=== PATIENT | female | born 1950 | race Caucasian/White ===

== ENCOUNTER 2016-05-23 23:11 | Emergency (ER) | payer OTHER ==
[2016-05-23 23:20] VITALS: TEMP 97.3
--- NOTE | 2016-05-23 23:44 | EDPHY ---
H & P Stated Complaint: R abd/back pain x3d HPI/ROS: HPI CHIEF COMPLAINT: Right-sided CVA pain, back pain, abdominal pain, worse with movement HISTORY OF PRESENT ILLNESS: This patient very pleasant 58-year-old female she does have significant past medical history for Parkinson's disease, thyroid disease, and multitude of surgeries, she presents to the emergency room with right-sided CVA pain right-sided musculoskeletal pain that radiates sharp burning sensation into her abdomen. Right-sided. She denies change in bowel habits, denies vomiting, denies diarrhea, denies urinary symptoms. Patient tells me that the pain is excruciating 10/10 worse when she moves. She does tell me she has chronic low back pain. Has bulging discs. She denies any trauma. She tells me the pain is worse with axial truncal movements as well as with lifting her left leg off the bed. No recent injury or fall. Does not hurt when she breathes in denies shortness of breath or chest pain. Patient tells me this been going on for 3 days. Denies fever. Denies saddle anesthesia or bowel or bladder incontinence. Past Medical History: Parkinson's disease, thyroid disease Past Surgical History: Colectomy from diverticulitis with abscess, right knee replacement, sinus surgery Social History: Denies daily use of drugs alcohol tobacco products Family History: Noncontributory ROS REVIEW OF SYSTEMS: A comprehensive 10 point review of systems is otherwise negative aside from elements mentioned in the history of present illness. Exam Constitutional triage nursing summary reviewed, vital signs reviewed, awake/ alert. Eyes normal conjunctivae and sclera, EOMI, PERRLA. HENT normal inspection, atraumatic, moist mucus membranes, no epistaxis, neck supple/ no meningismus, no raccoon eyes. Respiratory clear to auscultation bilaterally, normal breath sounds, no respiratory distress, no wheezing. Cardiovascular rate normal, regular rhythm, no murmur, no edema, distal pulses normal. Gastrointestinal soft, non-tender, no rebound, no guarding, normal bowel sounds, no distension, no pulsatile mass. Genitourinary no CVA tenderness. Musculoskeletal back exam: no midline lumbar pain, no step-offs, no crepitus, mild tenderness palpation over the posterior SI joint. no midline vertebral tenderness, full range of motion, no calf swelling, no tenderness of extremities , no meningismus, good pulses, neurovascularly intact. Skin pink, warm, & dry, no rash, skin atraumatic. Neurologic awake, alert and oriented x 3, AAOx3, moves all 4 extremities equally, motor intact, sensory intact, CN II-XII intact, normal cerebellar, normal vision, normal speech. Psychiatric normal mood/affect. Heme/Lymph/Immune no lymphadenopathy. Differential Diagnosis: Includes but is not limited to in a particular order, musculoskeletal back pain, nerve root compression, degenerative joint disease, annular tear, disc herniation, compression fracture, UTI, kidney stone, pyelonephritis, renal mass Medical Decision Making: This patient will have an IV established receive a fluid bolus she received 100 mcg of IV fentanyl for acute pain control, check blood work and urinalysis patient will need a CT scan abdomen pelvis with IV contrast rule out acute intra-abdominal pathology. Her pain is worse with left leg raise as well as truncal axial movements is most likely musculoskeletal nature. Re-evaluation: CT scan of the abdomen pelvis without IV contrast . The results of the study are shows no acute inflammatory process specifically no kidney stone hydroureter or pyelonephritis, unremarkable CT scan without contrast no evidence of compression fracture The study was read by Dr. Edwards I viewed the images myself on the PACS system. 1255: re-examination at this time patient is resting comfortably IV fentanyl did help the patient. CT scan is reassuring blood work has been reviewed urinalysis does indicate a nitro UTI. I have sent this for urine culture and given her IV Rocephin here in the emergency room. 0117: re-examination at this time she is feeling much better after IV fentanyl 100 mcg. She does have a nitrite positive UTI urine cultures been sent IV Rocephin has been given. The UTI is unlikely to cause this severe musculoskeletal back pain severe with movement. Specifically truncal axial movements and leg raise. No evidence of cauda equina syndrome CT scan shows no evidence of compression fracture. Patient is comfortable going home with antibiotics for her UTI as well some pain medicine for her back pain I feel that this sharp stabbing pain that radiates from her right CVA region and posterior SI joint into her abdomen however not down her leg is most likely nerve root compression. No evidence of cauda equina syndrome no evidence of sciatica. Recommend close follow-up with her primary care doctor or return emergency room if there is any worsening symptoms questions concerns includes high fever, vomiting severe pain or any questions or concerns she understands. 0208: Re-examination at this time this patient is resting comfortably. She is requesting be discharged home. Prescription given for Bhavani Delatorre. Understands strict return precautions. Source: Patient - Personal History Current Tetanus/Diphtheria Vaccine: Yes Current Tetanus Diphtheria and Acellular Pertussis (TDAP): Yes - Medical/Surgical History Hx Asthma: Yes Hx Chronic Respiratory Disease: No Hx Diabetes: No Hx Cardiac Disease: No Hx Renal Disease: No Hx Cirrhosis: No Hx Alcoholism: No Hx HIV/AIDS: No Hx Splenectomy or Spleen Trauma: No Other PMH: Asthma, Rectocele, chronic back & neck pain, hx colectomy, hx pneumothorax - Social History Smoking Status: Never smoked Constitutional: Initial Vital Signs Temperature (C) 36.3 C 05/23/16 23:15 Heart Rate 99 05/23/16 23:15 Respiratory Rate 16 05/23/16 23:15 Blood Pressure 139/78 H 05/23/16 23:15 O2 Sat (%) 98 05/23/16 23:15 O2 Delivery Mode Room Air Allergies/Adverse Reactions: codeine Allergy (Mild, Verified 09/23/13 12:19) Other-Enter Comments clindamycin Allergy (Verified 05/23/16 23:26) cyclobenzaprine Allergy (Verified 05/23/16 23:26) hydromorphone HCl [From Dilaudid] Allergy (Verified 10/07/13 19:23) iodine [Iodine] Allergy (Verified 04/25/09 22:11) meperidine HCl [From Demerol] Allergy (Verified 04/25/09 22:11) propoxyphene HCl [From Darvon] Allergy (Verified 04/25/09 22:11) ropinirole Allergy (Verified 05/23/16 23:26) Home Medications: Medication Instructions Recorded Albuterol [Proventil Inhaler HFA 1 - 2 puffs IH DAILY PRN 04/25/09 (*)] Levothyroxine [Synthroid 75 mcg 75 mcg PO HS 04/25/09 (*)] Acetaminophen [Tylenol ES 500 mg 500 mg PO DAILY PRN 09/18/13 (*)] Chlorpheniramine Maleate 4 mg PO DAILY PRN 09/18/13 Cholecalciferol (Vitamin D3) 2,000 unit PO DAILY@1700 09/18/13 [Vitamin D3] Docusate Sodium [Colace 100 MG (*)] 100 mg PO BID 09/18/13 Fluticasone Hfa 110 Mcg [Flovent 2 puffs IH BID PRN 09/18/13 110 MCG Hfa MDI (*)] Herbals/Supplements -Info Only 1 ea PO AD 09/18/13 Multivitamins [Multivitamin (*)] 1 each PO DAILY 09/18/13 Rizatriptan Benzoate [Rizatriptan] 10 mg PO PRN PRN 09/18/13 diphenhydrAMINE [Benadryl 25 MG 25 mg PO HS PRN 09/18/13 (*)] Ascorbic Acid [C-1000] 1,000 mg PO BID 09/19/13 Polyethylene Glycol 3350 [Miralax 1 tsp PO BID 09/19/13 17 gm (*)] Hydrocodone/APAP 5/325 [Homestead 1 - 2 tab PO Q4 PRN #30 tab 10/08/13 5/325 (*)] Carboxymethyl/Glycerin/Poly80 1 drop OP QID 03/23/14 [Refresh Optive Advanced Drops] Ondansetron Odt [Zofran Odt 4 mg 4 mg PO Q6 PRN 03/23/14 (*)] Aspirin EC [Aspirin EC 325 mg (*)] 325 mg PO DAILY #0 tab 04/09/14 Docusate Sodium [Colace 100 MG (*)] 100 mg PO BID #30 cap 04/09/14 HYDROcodone/APAP 10/325 [[place] 1 - 2 tab PO Q6 PRN #120 tab 04/09/14 10/325 (*)] Ondansetron Odt [Zofran Odt 4 mg 4 mg PO Q4 PRN #30 tab 04/09/14 (*)] celeCOXIB [Celebrex (*)] 200 mg PO DAILY #20 cap 04/09/14 oxyCODONE IR [Oxycodone Ir (*)] 5 mg PO Q6 PRN #30 tab 04/09/14 Cephalexin [Keflex] 500 mg PO Q6H #28 cap 05/24/16 Hydrocodone/APAP 5/325 [[place] 1 - 2 tab PO Q4H PRN #20 tab 05/24/16 5/325] Medical Decision Making - Data Points Laboratory Results: Laboratory Results 05/23/16 23:43 05/23/16 23:43 05/24/16 05/24/16 05/23/16 00:18 00:10 23:43 WBC RBC Hgb Hct MCV MCH MCHC RDW Plt Count MPV Neut % (Auto) Lymph % (Auto) Cooke % (Auto) Eos % (Auto) Baso % (Auto) Nucleat RBC Rel Count Absolute Neuts (auto) Absolute Lymphs (auto) Absolute Monos (auto) Absolute Eos (auto) Absolute Basos (auto) Absolute Nucleated RBC Immature Gran % Immature Gran # PT INR APTT VBG Lactic Acid 1.2 mmol/L mmol/L (0.7-2.1) Sodium 144 mEq/L mEq/L (134-144) Potassium 4.2 mEq/L mEq/L (3.5-5.2) Chloride 107 mEq/L mEq/L (97-110) Carbon Dioxide 25 mEq/l mEq/l (22-31) Anion Gap 12 mEq/L mEq/L (8-16) BUN 17 mg/dL mg/dL (7-23) Creatinine 0.7 mg/dL mg/dL (0.6-1.0) Estimated GFR > 60 Glucose 107 mg/dL H mg/dL (70-100) Calcium 10.1 mg/dL mg/dL (8.5-10.4) Total Bilirubin 0.6 mg/dL mg/dL (0.1-1.4) Conjugated Bilirubin 0.4 mg/dL mg/dL (0.0-0.5) Unconjugated Bilirubin 0.2 mg/dL mg/dL (0.0-1.1) AST 25 IU/L IU/L (14-46) ALT 15 IU/L IU/L (9-52) Alkaline Phosphatase 92 IU/L IU/L (38-126) Total Protein 7.9 g/dL g/dL (6.3-8.2) Albumin 4.8 g/dL g/dL (3.5-5.0) Lipase 89.0 IU/L IU/L (23-300) Urine Color YELLOW Urine Appearance MODERATELY TURBID Urine pH 5.0 (5.0-7.5) Ur Specific [place] 1.015 (1.002-1.030) Urine Protein NEGATIVE (NEGATIVE) Urine Ketones TRACE H (NEGATIVE) Urine Blood NEGATIVE (NEGATIVE) Urine Nitrate POSITIVE H (NEGATIVE) Urine Bilirubin NEGATIVE (NEGATIVE) Urine Urobilinogen NEGATIVE EU EU (0.2-1.0) Ur Leukocyte Esterase TRACE H (NEGATIVE) Urine RBC Not Reported Urine WBC 5-10 /hpf H /hpf (0-3) Ur Epithelial Cells 1+ /lpf /lpf (NONE-1+) Urine Bacteria TRACE /hpf H /hpf (NONE SEEN) Urine Mucus TRACE /lpf /lpf (NONE-1+) Ur Culture Indicated? INDICATED H (NI) Urine Glucose NEGATIVE (NEGATIVE) 05/23/16 05/23/16 23:43 23:43 WBC 6.54 10^3/uL 10^3/uL (3.80-9.50) RBC 4.26 10^6/uL 10^6/uL (4.18-5.33) Hgb 14.6 g/dL g/dL (12.6-16.3) Hct 41.2 % % (38.0-47.0) MCV 96.7 fL fL (81.5-99.8) MCH 34.3 pg H pg (27.9-34.1) MCHC 35.4 g/dL g/dL (32.4-36.7) RDW 12.8 % % (11.5-15.2) Plt Count 222 10^3/uL 10^3/uL (150-400) MPV 9.1 fL fL (8.7-11.7) Neut % (Auto) 66.8 % % (39.3-74.2) Lymph % (Auto) 24.5 % % (15.0-45.0) Cooke % (Auto) 6.6 % % (4.5-13.0) Eos % (Auto) 1.2 % % (0.6-7.6) Baso % (Auto) 0.6 % % (0.3-1.7) Nucleat RBC Rel Count 0.0 % % (0.0-0.2) Absolute Neuts (auto) 4.37 10^3/uL 10^3/uL (1.70-6.50) Absolute Lymphs (auto) 1.60 10^3/uL 10^3/uL (1.00-3.00) Absolute Monos (auto) 0.43 10^3/uL 10^3/uL (0.30-0.80) Absolute Eos (auto) 0.08 10^3/uL 10^3/uL (0.03-0.40) Absolute Basos (auto) 0.04 10^3/uL 10^3/uL (0.02-0.10) Absolute Nucleated RBC 0.00 10^3/uL 10^3/uL (0-0.01) Immature Gran % 0.3 % % (0.0-1.1) Immature Gran # 0.02 10^3/uL 10^3/uL (0.00-0.10) PT 13.5 SEC SEC (12.0-15.0) INR 1.04 (0.83-1.16) APTT 26.5 SEC SEC (23.0-38.0) VBG Lactic Acid Sodium Potassium Chloride Carbon Dioxide Anion Gap BUN Creatinine Estimated GFR Glucose Calcium Total Bilirubin Conjugated Bilirubin Unconjugated Bilirubin AST ALT Alkaline Phosphatase Total Protein Albumin Lipase Urine Color Urine Appearance Urine pH Ur Specific [place] Urine Protein Urine Ketones Urine Blood Urine Nitrate Urine Bilirubin Urine Urobilinogen Ur Leukocyte Esterase Urine RBC Urine WBC Ur Epithelial Cells Urine Bacteria Urine Mucus Ur Culture Indicated? Urine Glucose Medications Given: Discontinued Medications Hydrocodone Bitart/Acetaminophen (Homestead 5/325mg Prepack#6) 1 btl TAKEHOME EDNOW ONE Stop: 05/24/16 01:21 Last Admin: 05/24/16 01:39 Dose: 1 btl Cephalexin (Keflex 500 Mg Prepack#4) 1 btl TAKEHOME EDNOW ONE PRN Reason: Protocol Stop: 05/24/16 01:21 Last Admin: 05/24/16 01:40 Dose: 1 btl Fentanyl (Sublimaze) 100 mcg IVP EDNOW ONE Stop: 05/24/16 00:12 Last Admin: 05/24/16 00:19 Dose: 100 mcg Fentanyl (Sublimaze) 50 mcg IVP EDNOW ONE Stop: 05/24/16 01:17 Last Admin: 05/24/16 01:24 Dose: 50 mcg Sodium Chloride (Ns) 1,000 mls @ 0 mls/hr IV ONCE ONE PRN Reason: Wide Open Stop: 05/23/16 23:48 Last Admin: 05/24/16 00:11 Dose: 1,000 mls Ceftriaxone Sodium/Dextrose (Rocephin 1 Gm (Premix)) 50 mls @ 100 mls/hr IV EDNOW ONE PRN Reason: Protocol Stop: 05/24/16 01:19 Last Admin: 05/24/16 01:13 Dose: 50 mls Departure - Departure Disposition: Home, Routine, Self-Care Clinical Impression: UTI (urinary tract infection) Qualifiers: Urinary tract infection type: acute cystitis Hematuria presence: with hematuria Qualified Code(s): N30.01 - Acute cystitis with hematuria Back pain Qualifiers: Back pain location: low back pain Chronicity: acute Back pain laterality: right Sciatica presence: without sciatica Qualified Code(s): M54.5 - Low back pain Condition: Good Instructions: Urinary Tract Infection in Women (ED), Low Back Strain (ED), Acute Low Back Pain (ED), Lumbar Radiculopathy (ED), Flank Pain (ED) Additional Instructions: 1. Stay well-hydrated drink lots of fluids 2. return emergency room if you have worsening symptoms high fever vomiting severe back pain or you do not feel well. 3. Take antibiotic as prescribed. 4. I have given her a prescription for Homestead this is a narcotic do not drive or drink alcohol while taking this can make her sleepy. It is for times of severe pain Referrals: Shey Alcantara MD [Primary Care Provider] - As per Instructions Prescriptions: Cephalexin [Keflex] 500 mg PO Q6H #28 cap Hydrocodone/APAP 5/325 [Homestead 5/325] 1 - 2 tab PO Q4H PRN #20 tab PRN Reason: Pain, Moderate
[2016-05-23] MEDS ORDERED: NS 1,000 ML IV ONE (23:47)
[2016-05-23 23:56] LABS: % IMMATURE GRANULYOCYTES 0.3 % (0.0-1.1); ABSOLUTE IMMATURE GRANULOCYTES 0.02 10^3/uL (0.00-0.10); ADD DIFF? NO; ADD MORPH? NO; ADD SCAN? NO; ATYPICAL LYMPHOCYTE FLAG 0 (0-99); FRAGMENT RBC FLAG 0 (0-99); HEMATOCRIT 41.2 % (38.0-47.0); HEMOGLOBIN 14.6 g/dL (12.6-16.3); LEFT SHIFT FLG 0 (0-99); LIPEMIA HEMOLYSIS FLAG 90 (0-99); MEAN CELL HEMOGLOBIN 34.3 pg (27.9-34.1); MEAN CELL HEMOGLOBIN CONCENTR. 35.4 g/dL (32.4-36.7); MEAN CELL VOLUME 96.7 fL (81.5-99.8); MEAN PLATELET VOLUME 9.1 fL (8.7-11.7); PLATELET CLUMPS FLAG 0 (0-99); PLATELET COUNT 222 10^3/uL (150-400); RED BLOOD CELL COUNT 4.26 10^6/uL (4.18-5.33); RED CELL DISTRIBUTION WIDTH 12.8 % (11.5-15.2)
[2016-05-24 00:05] LABS: INR 1.04 (0.83-1.16); PROTIME(PATIENT) 13.5 SEC (12.0-15.0)
[2016-05-24 00:06] LABS: APTT 26.5 SEC (23.0-38.0)
[2016-05-24 00:11] LABS: ALANINE AMINOTRANSFERASE 15 IU/L (9-52); ALBUMIN 4.8 g/dL (3.5-5.0); ALKALINE PHOSPHATASE 92 IU/L (38-126); ANION GAP 12 mEq/L (8-16); ASPARTATE AMINOTRANSFERASE 25 IU/L (14-46); BILIRUBIN,TOTAL 0.6 mg/dL (0.1-1.4); BILIRUBIN-CONJUGATED 0.4 mg/dL (0.0-0.5); BILIRUBIN-UNCONJUGATED 0.2 mg/dL (0.0-1.1); CALCIUM 10.1 mg/dL (8.5-10.4); CARBON DIOXIDE 25 mEq/l (22-31); CHLORIDE 107 mEq/L (97-110); CREATININE 0.7 mg/dL (0.6-1.0); GLOMERULAR FILTRATION RATE > 60; GLUCOSE 107 mg/dL (70-100); POTASSIUM 4.2 mEq/L (3.5-5.2); SODIUM 144 mEq/L (134-144); TOTAL PROTEIN 7.9 g/dL (6.3-8.2)
[2016-05-24] MEDS ORDERED: fentaNYL 100 MCG/2 ML INJ IVP ONE ×2 (00:11→01:16)
[2016-05-24 00:19] LABS: COLOR YELLOW; LEUKOCYTE ESTERASE,URINE TRACE (NEGATIVE); NITRITE,URINE POSITIVE (NEGATIVE)
[2016-05-24 00:29] LABS: BACTERIA TRACE /hpf (NONE SEEN); MUCUS TRACE /lpf (NONE-1+)
[2016-05-24] MEDS ORDERED: CEPHALEXIN 500MG PREPACK#4 BTL TAKEHOME ONE (01:20)
[2016-05-24] MEDS ORDERED: HYDROCOD/APAP 5/325 PREPACK#6 BTL TAKEHOME ONE (01:20)
[2016-05-24 02:36] VITALS: BP 131/72; PULSE 75; RESP 20; O2SAT 96
== END 2016-05-24 02:43 | disposition home or self-care (01) ==
DX: N30.01 Acute cystitis with hematuria (principal); B96.89 Other specified bacterial agents as the cause of diseases classified elsewhere; J45.909 Unspecified asthma, uncomplicated; Z79.82 Long term (current) use of aspirin
CPT/HCPCS: 74176; J0696; J3010; 96365

== ENCOUNTER 2017-02-15 07:51 | Inpatient (IN) | payer OTHER ==
[~2017-02-15 07:51] MED LIST: ROPIVACAINE 0.2% 80 MG, EPINEPHrine 0.2 MG, KETOROLAC TROMETHAMINE 30 MG in BAG 0 ML IU ONE; TRANEXAMIC ACID 3,000 MG in NS 50 ML IRR ONE; TRANEXAMIC ACID 3,000 MG/50 ML BAG IRR ONE; VANCOMYCIN 1 GM VIAL ONE
[2017-02-15] MEDS ORDERED: ceFAZolin 2 GM/SWFI 2 GM/20 ML SYR IVP ONE (08:14)
[2017-02-15] MEDS ORDERED: DEXAMETHASONE 4 MG/ML VIAL IVP ONE (08:14)
[2017-02-15] MEDS ORDERED: FAMOTIDINE 20 MG TAB PO ONE (08:14)
[2017-02-15] MEDS ORDERED: LR 1,000 ML IV ONE (08:22)
[2017-02-15] MEDS ORDERED: LIDOCAINE 1% 2 ML INJ ID PRN (08:22)
--- NOTE | 2017-02-15 09:16 | PDANEPAE ---
ANE History of Present Illness Left TKA ANE Past Medical History - Cardiovascular History Hx Hypertension: No Hx Arrhythmias: No Hx Chest Pain: No Hx Coronary Artery / Peripheral Vascular Disease: No Hx CHF / Valvular Disease: No Hx Palpitations: No Cardiovascular History Comment: 60 yo brother-aortic anuerysm. - Pulmonary History Hx COPD: No Hx Asthma/Reactive Airway Disease: Yes Hx Recent Upper Respiratory Infection: No Hx Oxygen in Use at Home: No Hx Sleep Apnea: No Sleep Apnea Screening Result - Last Documented: Negative Pulmonary History Comment: Asthma&bronchitis-inhaler. Idiopathic pnuemothorax- 46yo,resolved. Several episodes pneumonia&bronchitis. - Neurologic History Hx Cerebrovascular Accident: No Hx Seizures: No Hx Dementia: No Neurologic History Comment: PARKINSONS. HX-migraines. - Endocrine History Hx Diabetes: No Hypothyroid: Yes Hyperthyroid: No Obesity: no Endocrine History Comment: Hypothyroid-med in past and currently reevaluating - Renal History Hx Renal Disorders: Yes Renal History Comment: Urinary frequency - Liver History Hx Hepatic Disorders: No - Neurological & Psychiatric Hx Hx Neurological and Psychiatric Disorders: Yes Neurological / Psychiatric History Comment: Mild anxiety/depression. - Cancer History Hx Cancer: No - Congenital Disorder History Hx Congenital Disorders: No - GI History GERD: mild Hx Gastrointestinal Disorders: Yes Gastrointestinal History Comment: 2009-perforated colon abcess,colectomy. GERD- Tums. Diverticulitis, IBS-diet controlled. - Other Health History Other Health History: Bilateral mild cataracts. Ringing both ears-menieres. Several severe nosebleeds-hospitalized. Resolved since 1982. Diffuse fibromyalgia, neuralgia, arthritis. Low back&neck issues. - Chronic Pain History Chronic Pain: Yes (fibromyalgia & arthritis) - Surgical History Prior Surgeries: REPAIR BLADDER PROLAPSE. R TKA. 2009-colectomy. 2007-L knee scope. SHUN kneescope. Shun. shoulder repairs. hysterectomy. TONSILLECTOMY ANE Review of Systems Review of Systems: - Exercise capacity METS (RN): 4 METS - Systems Neurological: Reports: other (Parkinsons) ANE Patient History - Allergies Allergies/Adverse Reactions: codeine Allergy (Mild, Verified 09/23/13 12:19) Other-Enter Comments clindamycin Allergy (Verified 05/23/16 23:26) cyclobenzaprine Allergy (Verified 05/23/16 23:26) hydromorphone HCl [From Dilaudid] Allergy (Verified 10/07/13 19:23) iodine [Iodine] Allergy (Verified 04/25/09 22:11) meperidine HCl [From Demerol] Allergy (Verified 04/25/09 22:11) propoxyphene HCl [From Darvon] Allergy (Verified 04/25/09 22:11) ropinirole Allergy (Verified 05/23/16 23:26) - Home Medications Home Medications: Albuterol [Proventil Inhaler HFA (*)] 1 - 2 puffs IH DAILY PRN 04/25/09 [Last Taken 03/18/14] Cholecalciferol (Vitamin D3) [Vitamin D3] 2,000 unit PO DAILY@1700 09/18/13 [ Last Taken 01/30/17] Herbals/Supplements -Info Only 1 ea PO AD 09/18/13 [Last Taken 01/30/17] Multivitamins [Multivitamin (*)] 1 each PO DAILY 09/18/13 [Last Taken 01/30/17] diphenhydrAMINE [Benadryl 25 MG (*)] 25 mg PO HS PRN 09/18/13 [Last Taken ] Ascorbic Acid [C-1000] 1,000 mg PO BID 09/19/13 [Last Taken 01/30/17] Polyethylene Glycol 3350 [Miralax 17 gm (*)] 1 tsp PO BID 09/19/13 [Last Taken 02/14/17] Carboxymethyl/Glycerin/Poly80 [Refresh Optive Advanced Drops] 1 drop OP QID [Last Taken 02/15/17 06:00] Carbidopa/Levodopa [Carbidopa-Levodopa 25-100 Tab] 1 tab PO DAILY@22 01/07/17 [ Last Taken 02/14/17 20:00] Carbidopa/Levodopa [Carbidopa-Levodopa 25-100 Tab] 1.5 tab PO DAILY@ [Last Taken 02/15/17 06:00] Ibuprofen [Motrin (*)] 200 mg PO DAILY PRN 01/07/17 [Last Taken 01/30/17] celeCOXIB [Celebrex (*)] 200 mg PO DAILY 02/15/17 [Last Taken 02/14/17 20:00 400mg] - NPO status NPO Since - Liquids (Date): 02/15/17 NPO Since - Liquids (Time): 06:00 NPO Since - Solids (Date): 02/14/17 NPO Since - Solids (Time): 22:00 - Smoking Hx Smoking Status: Never smoked - Family Anes Hx Family Hx Anesthesia Complications: no ANE Labs/Vital Signs - Vital Signs Blood Pressure: 127/72 Heart Rate: 69 Respiratory Rate: 16 O2 Sat (%): 98 Height: 170.18 cm Weight: 68.039 kg ANE Physical Exam - Airway Neck exam: decreased ROM Mallampati Score: Class 2 - Pulmonary Pulmonary: no respiratory distress - Cardiovascular Cardiovascular: regular rate and rhythym, no murmur, rub, or gallop - ASA Status ASA Status: III ANE Anesthesia Plan Anesthesia Plan: spinal Regional Anesthesia: adductor canal FNB
--- NOTE | 2017-02-15 09:33 | PDHPUP ---
History & Physical Update H&P update statement: This history and physical update is based on an assessment of the patient which was completed after admission or registration (within 24 hours), but prior to the surgery/procedure. H&P update: H&P reviewed & patient examined, no change in patient's condition since H&P completed
[2017-02-15] MEDS ORDERED: MIDAZOLAM 2 MG/2 ML VIAL IVP ONE ×2 (10:05→10:52)
[2017-02-15] MEDS ORDERED: MIDAZOLAM 2 MG/2 ML VIAL ONE ×2 (10:05→10:21)
[2017-02-15] MEDS ORDERED: BUPIVACAINE 0.5% 30 ML SDV ONE (10:19)
[2017-02-15] MEDS ORDERED: PROPOFOL 200 MG/20 ML VIAL ONE ×2 (10:20)
[2017-02-15] MEDS ORDERED: LIDOCAINE 2% 5 ML SDV ONE (11:04)
[2017-02-15] MEDS ORDERED: ONDANSETRON 4 MG/2 ML VIAL IVP PRN ×2 (11:06→11:50)
[2017-02-15] MEDS ORDERED: fentaNYL 100 MCG/2 ML INJ IVP PRN (11:06)
[2017-02-15] MEDS ORDERED: HYDROCODONE/APAP 5/325 TAB PO PRN (11:06)
[2017-02-15] MEDS ORDERED: OXYCODONE/APAP 5/325 TAB PO PRN (11:06)
[2017-02-15] MEDS ORDERED: NALOXONE HCL 0.4 MG/ML INJ IVP PRN (11:06)
[2017-02-15] MEDS ORDERED: METOCLOPRAMIDE 10 MG/2 ML VIAL IVP PRN (11:50)
[2017-02-15] MEDS ORDERED: LACTULOSE 20 GM/30 ML UDCUP PO PRN (11:50)
[2017-02-15] MEDS ORDERED: ONDANSETRON DISINTEGRATING 4 MG TAB PO PRN (11:50)
[2017-02-15] MEDS ORDERED: BISACODYL 10 MG SUPP PR PRN (11:50)
[2017-02-15] MEDS ORDERED: PROMETHAZINE HCL 25 MG/ML INJ IVP PRN (11:50)
[2017-02-15] MEDS ORDERED: diphenhydrAMINE 25 MG CAP PO PRN (11:50)
[2017-02-15] MEDS ORDERED: PROMETHAZINE HCL 25 MG SUPPR PR PRN (11:50)
[2017-02-15] MEDS ORDERED: MAGNESIUM HYDROXIDE 30 ML UDCUP PO PRN (11:50)
[2017-02-15] MEDS ORDERED: TEMAZEPAM 15 MG CAP PO PRN (11:50)
[2017-02-15] MEDS ORDERED: POLYETHYLENE GLYCOL 3350 17 GM PKT PO PRN (11:50)
[2017-02-15] MEDS ORDERED: DIAZEPAM 5 MG TAB PO PRN (11:50)
--- NOTE | 2017-02-15 11:50 | POSTOPPROG ---
Post Op Note Date of Operation: 02/15/17 Surgeon: Audrey Proctor [employer] Lead: nancy proctor Anesthesiologist: dr. donnelly Anesthesia: Spinal, Other (Specify) (adductor canal block) Pre-op Diagnosis: left knee OA Post-op Diagnosis: same Indication: left knee pain due to OA that failed conservative measures Procedure: L TKA Findings: severe knee OA Inf/Abcess present in the surg proc area at time of surgery?: No EBL: 50-100
[2017-02-15] MEDS ORDERED: NS 1,000 ML IV SCH (12:00)
[2017-02-15] MEDS ORDERED: ALBUTEROL 200 PUFFS/18 GM MDI IH PRN (13:05)
[2017-02-15] MEDS ORDERED: CARBIDOPA/LEVODOPA 25 MG/100 MG TAB PO SCH ×2 (14:00→22:00)
[2017-02-15] MEDS: GLYCERIN OP SCH ×3 (15:49→20:33)
[2017-02-15] MEDS: POLY80 OP SCH ×3 (15:49→20:33)
[2017-02-15] MEDS: CARBOXYMETHYL OP SCH ×3 (15:49→20:33)
[2017-02-15] MEDS: HYDROCODONE/APAP 10/325 TAB PO PRN ×2 (17:17→20:17)
[2017-02-15] MEDS: ceFAZolin 2 GM/DEXTROSE 100 ML IV SCH (17:17)
[2017-02-15] MEDS: SENNOSIDES/DOCUSATE SODIUM TAB PO SCH (20:16)
[2017-02-15] MEDS: ASPIRIN 325 MG TAB PO SCH (20:16)
[2017-02-15] MEDS: POLYETHYLENE GLYCOL 3350 17 GM PKT PO SCH (20:16)
[2017-02-15] MEDS: FAMOTIDINE 20 MG TAB PO SCH (20:17)
[2017-02-16] MEDS: ceFAZolin 2 GM/DEXTROSE 100 ML IV SCH (01:44)
[2017-02-16] MEDS: HYDROCODONE/APAP 10/325 TAB PO PRN ×2 (03:55→06:05)
[2017-02-16 05:35] LABS: HEMATOCRIT 32.5 % (38.0-47.0); HEMOGLOBIN 11.4 g/dL (12.6-16.3)
[2017-02-16] MEDS ORDERED: CARBIDOPA/LEVODOPA 25 MG/100 MG TAB PO SCH (06:00)
[2017-02-16] MEDS: CARBOXYMETHYL OP SCH ×2 (06:13→11:53)
[2017-02-16] MEDS: GLYCERIN OP SCH ×2 (06:13→11:53)
[2017-02-16] MEDS: POLY80 OP SCH ×2 (06:13→11:53)
[2017-02-16 07:29] VITALS: RESP 16
[2017-02-16] MEDS: SENNOSIDES/DOCUSATE SODIUM TAB PO SCH (09:45)
[2017-02-16] MEDS: ASPIRIN 325 MG TAB PO SCH (09:45)
[2017-02-16] MEDS: FAMOTIDINE 20 MG TAB PO SCH (09:45)
[2017-02-16] MEDS: POLYETHYLENE GLYCOL 3350 17 GM PKT PO SCH (09:47)
--- NOTE | 2017-02-16 10:55 | ASMTCMCOM ---
CM Note CM Note Notes: Anticipate pt will have no DC needs. Date Signed: 02/16/2017 10:54 AM Electronically Signed By:Cristina Urrutia LCSW
--- NOTE | 2017-02-16 11:32 | GOP ---
[f rep st] OPERATIVE REPORT DATE OF OPERATION: 02/15/2017 SURGEON: Susannah Garcia MD SCIENCE JOB TITLES: JANIA De ANESTHESIA: Spinal. PREOPERATIVE DIAGNOSIS: Left knee osteoarthritis. POSTOPERATIVE DIAGNOSIS: Left knee osteoarthritis. PROCEDURE PERFORMED: Left total knee arthroplasty. FINDINGS: ESTIMATED BLOOD LOSS: 30 cc. INDICATIONS: This is a 67-year-old female with severe and progressive pain and deformity of the left knee unresponsive to conservative care. Risks and benefits of the surgical intervention were explai olivia in detail. DESCRIPTION OF PROCEDURE: The patient was brought to the operative room and placed on the table in t he supine position. Spinal anesthesia was induced without difficulty. A pneumatic tourniquet was ap plied about the left proximal thigh, and the leg was prepped and draped in a sterile fashion. The le g garcia was applied. After exsanguination by elevation the tourniquet was inflated to 75 mm of merc ury. Incision was made anterior medial from the tibial tuberosity to a point 2 cm proximal to the superior pole of the patella. Medial parapatellar arthrotomy was carried out from the superior pole of the p atella and posteriorly in line with the fibers of the Type 2 VMO. The medial collateral ligament was elevated and the infrapatellar fat pad was resected. The patella was everted and the articular surface was excised. A 35 mm patellar button was placed. T he distal femoral guide hole was drilled and the 6 degree alignment trevon was placed. A 10 mm distal f emoral cut was made without difficulty. Attention was turned to the tibia and a standard 6 mm cut based on the tibial condyle was performed. The tibial articular surface was excised without difficulty. Attention was turned back to the femur and a size 3 Triathlon femoral cutting block was positioned. Anterior, posterior, and chamfer cuts were made, followed by the intercondylar box cut. The knee was extended and the remnants of the medial and lateral meniscus were excised. The posterio r capsule was injected with ropivacaine, epinephrine and Toradol. A size 4 MIS mini-keel tibial tray was positioned. Trial reduction was then carried out. There was excellent range of motion, alignme nt, and stability using the 11 mm polyethylene. All trials were then removed. The joint was thoroughly irrigated and carefully dried. Two packages of cement and 2 grams of vancomycin were mixed in the vacuum mixer and placed on the fixation surface s of all surfaces of the components. The components were implanted and all excess cement was thoroug hly removed. The permanent 11mm polyethylene X3 was placed without difficulty. The tourniquet was deflated and all bleeders were coagulated. The wound was thoroughly irrigated and closed using interrupted sutures of 2-0 Vicryl for the joint capsule. The subcu was closed with 3-0 Vicryl and the skin with 4-0 Monocryl. Dermabond and Steri-Strips were applied followed by a compre ssive dressing. The patient was then moved from the operating room to the recovery room in good cond ition, having tolerated the procedure well. PATHOLOGY: Severe lateral and patellofemoral osteoarthritis. /[id number]/MODL
[2017-02-16 11:33] VITALS: BP 98/58; PULSE 75; TEMP 97.5; O2SAT 98
--- NOTE | 2017-02-16 11:36 | SOAPPROG ---
SOAP Progress Note Assessment/Plan: Assessment: patient is doing well POD1 s/p L TKA 1) pain management: pain is well controlled on oral pain meds 2) VTE ppx: recommend aspirin daily. cont KAIT [place] and SCDs 3) d/c planning: d/c to home today once patient is released from PT 4)postop urinary retention: straight cath'd yesterday, resolved today 5) anemia: level expected initially postop, asymptomatic Plan: 02/16/17 11:34 Subjective: Rebecca is doing well today, denies SOB, chest pain and n/V. Objective: Vital Signs Temp Pulse Resp BP Pulse Ox 36.4 C 75 16 98/58 L 98 02/16/17 11:25 02/16/17 11:25 02/16/17 11:25 02/16/17 11:25 02/16/17 11:25 Laboratory Results 02/16/17 05:05 02/15/17 02/16/17 02/17/17 05:59 05:59 05:59 Intake Total 1105 Output Total 1310 Balance -205 LLE: incision dressing is clean and dry, NVI, +pf/df ICD10 Worksheet Patient Problems: Problems Problem Status Onset Primary localized osteoarthritis of left knee Acute Osteoarthritis of knee Acute
--- NOTE | 2017-02-16 12:17 | GDS ---
[f rep st] DISCHARGE SUMMARY ADMISSION DIAGNOSIS: Left knee osteoarthritis. DISCHARGE DIAGNOSIS: Left knee osteoarthritis. PROCEDURE: Left total knee arthroplasty. VTE PROPHYLAXIS: Aspirin 81 mg twice daily for 3 weeks recommended. BRIEF DESCRIPTION OF HOSPITAL STAY: Patient was admitted for an elective joint arthroplasty. The pa tient tolerated the procedure well and has passed physical therapy. The patient was given appropriat e antibiotic prophylaxis and venous thromboembolism prophylaxis. The patient's pain was well control led on oral pain medication, patient was holding down food, and had urinated. Decision was made to d ischarge the patient. The patient was given post-operative prescriptions pre-operatively. PLAN: To follow up as scheduled with Dr. Garcia's office on March 07 at 9:45 a.m. /[id number]/MODL
--- NOTE | 2017-02-16 14:16 | ASDISCHSUM ---
Discharge Information Plan Status: Medically Cleared to Leave: Discharge Date:02/16/2017 12:50 PM CM D/C Disposition: ADT D/C Disposition:Home, Routine, Self-Care Projected Discharge Date:02/16/2017 12:50 PM Transportation at D/C: Discharge Delay Reason: Follow-Up Date:02/16/2017 12:50 PM Discharge Slot: Final Diagnosis: Placement Information Patient Contact Information Contact Name:TOREYBRENTMONICANICOLE Relationship: Address:[address] [place] City:[place] Alternate Phone: State/Zip Code:[place] [address] Email: Financial Information Financial Class:Medicare Advantage Plans Primary Plan Desc:[facility] ADVANTAGE PLAN Primary Plan Number:[id number] Secondary Plan Desc: Secondary Plan Number: Assessment Information BC CM Progress Note CM Note CM Note Notes: Anticipate pt will have no DC needs. Date Signed: 02/16/2017 10:54 AM Electronically Signed By:Cristina Urrutia LCSW Intervention Information
--- NOTE | 2017-02-16 17:17 | POSTANESTH ---
Post Anesthetic Evaluation Cardiovascular Status: Normal, Stable Respiratory Status: Normal, Stable Level of Consciousness/Mental Status: Can Participate in Eval Pain Control: Adequate, Prn Tx Ordered Nausea/Vomiting Control: Adequate, Prn Tx Ordered Complications Possibly Related to Anesthesia: None Noted (Seen 02/15/17 Doing well)
== END 2017-02-16 12:50 | disposition home or self-care (01) | DRG 470 ==
LOC: F3N 07:51
PROVIDERS: ADMIT Orthopaedic Surgery; ATTEND Orthopaedic Surgery
PROC: 0SRD0J9 Replacement of Left Knee Joint with Synthetic Substitute, Cemented, Open Approach (ICD-10-PCS; principal; 2017-02-15 10:15)
DX: M17.12 Unilateral primary osteoarthritis, left knee (principal); G20 Parkinson's disease; E03.9 Hypothyroidism, unspecified; G43.909 Migraine, unspecified, not intractable, without status migrainosus; J45.909 Unspecified asthma, uncomplicated; R35.0 Frequency of micturition; Z96.651 Presence of right artificial knee joint
CPT/HCPCS: 97110-GP; 97116-GP; 97162-GP; 97166-GO; C1713; G8978-GP-CJ; G8979-GP-CI; G8987-GO-CI; G8988-GO-CH; J0171; J0690; J1100; J1885; J2250; J2704; J2795; J3370

== ENCOUNTER → 2017-05-02 | Outpatient (CLI) | payer OTHER | LOC: FIMAGING 13:34 | PROVIDERS: ATTEND Family Medicine | DX: M51.36 Other intervertebral disc degeneration, lumbar region (principal); K59.09 Other constipation; R10.9 Unspecified abdominal pain ==

== ENCOUNTER → 2017-07-10 | Outpatient (CLI) | payer OTHER | LOC: FIMAGING 10:43 | PROVIDERS: ATTEND Family Medicine | DX: R06.02 Shortness of breath (principal); R07.81 Pleurodynia; R53.83 Other fatigue; W19.XXXA Unspecified fall, initial encounter ==

== ENCOUNTER 2018-05-01 17:50 | Emergency (ER) | payer OTHER ==
--- NOTE | 2018-05-01 18:54 | EDPHY ---
General Time Seen by Provider: 05/01/18 18:31 Narrative: CLINICAL IMPRESSION: Facial contusion, right shoulder pain, ground level fall ASSESSMENT/PLAN: 68-year-old female with past medical history of Parkinson's disease, fibromyalgia, chronic neck and back pain, presents to the emergency department after she tripped on her shoes at home and fell onto her face. Patient initially had epistaxis which resolved upon arrival to the ED. She has no clinical signs of nasal bone step-off, septal hematoma or septal perforation. No obvious periorbital inflammation or pain, no malocclusion. She had dental surgery today with no evidence of disruption to suture sites. She reports no headache, dizziness, vertigo, acute vision or hearing change. CT head, maxillofacial bones, and cervical spine negative for acute fracture and intracranial bleeding. X-rays of the right shoulder read by myself with no obvious evidence of clavicle fracture, AC joint separation, anterior shoulder dislocation, or proximal humeral fracture. Patient has intact distal neurovascular exam. She otherwise has nonfocal neuro exam, no reproducible midline back pain. She had a fall several weeks ago resulting in several left rib fractures, repeat chest x-ray today shows no obvious pneumothorax or acute rib fracture. She has not hypoxic or in respiratory distress. She was provided a sling to the right arm and encouraged to follow up with her primary care doctor tomorrow. She is requesting discharge and feels comfortable going home with her seismograph chief. Warning signs return to ED sooner outlined in person and discharge papers. DIFFERENTIAL DX: Differential includes but not limited to closed-head injury, concussion, intracranial bleed, skull fracture, maxillofacial fractures, C-spine fracture, rib fractures, pneumothorax, right shoulder injury including dislocation, proximal humeral fracture or clavicle fracture. ED PROCEDURES: See lab and/or imaging results below ED COURSE: Plan for this patient, CT head, CT cervical spine, CT maxillofacial, x-rays of right shoulder and chest wall with left rib films 7:55 P.M.: CT results discussed with Dr. Schneider. No evidence of acute intracranial hemorrhage, skull fracture, C-spine fracture or maxillofacial fracture. X-rays of the right shoulder, chest and ribs show no obvious evidence of fracture, dislocation, or AC separation. Final radiology read pending. Patient was asking to go home. Will place in right arm sling and have her follow up with her primary orthopedic provider, Dr. Garcia. CHIEF COMPLAINT: Ground level fall to face HPI: 68-year-old female past medical history of Parkinson's disease, fibromyalgia, presents to the emergency department with her friend after she tripped over her feet at home and fell forward landing flat on her face. Patient was on the phone with her friend with the accident happened. Friend reports she immediately began talking and it does not appear she had loss of consciousness. She is not anticoagulated. She did experience epistaxis which has since resolved. She is complaining of right shoulder pain, nasal bone pain, facial swelling. She had a fall several weeks ago and sustained several left rib fractures but does not report this pain worse after today's fall. She reports no back pain. She reports an aching sensation into the right arm but reports no numbness or loss of sensation to the fingers or hand. She was able to stand up, put weight on her legs and reports no pain with ambulation. She denies chest pain and shortness of breath. She took hydrocodone prior to arrival for dental surgery which she had today. PAST MEDICAL HISTORY: Parkinson's disease, fibromyalgia, chronic neck and back pain, rectocele See nurse/triage notes for additional history if applicable Pertinent Past Surgical History: History of spontaneous pneumothorax, history of colectomy Family History: Not obtained Social History: Lives with her who is currently on vacation, here with her friend and caregiver REVIEW OF SYSTEMS: All other systems negative Constitutional: No fever, no chills, appetite change. Eyes: No discharge, vision change ENT: No sore throat, congestion, ear pain, positive for nasal bone pain Cardiovascular: No chest pain, no palpitations. Respiratory: No cough, no shortness of breath, positive for left rib pain. Gastrointestinal: No abdominal pain, no vomiting, diarrhea. Genitourinary: No hematuria, dysuria, flank pain, pelvic pain Musculoskeletal: Chronic back pain, joint swelling, positive for right shoulder joint pain, myalgias. Skin: No rashes, color change. Neurological: Positive for mild headache, denies dizziness, weakness. PHYSICAL EXAM: General Appearance: Alert, oriented, appropriate, cooperative, NAD, well hydrated, non-toxic appearing, VSS, no hypoxia. HEENT: TMs are clear bilaterally no perforation or FB, no injection, no evidence of serous or mucopurulent otitis. No hemotympanum or Ramsay sign. No obvious nasal bone step-off, septal hematoma, septal perforation or active epistaxis, Oropharynx clear is no erythema or exudates, no tonsillar hypertrophy or asymmetry. Dentition with obvious surgical implants and sutures in place on the lower jaw. No obvious dental trauma or bleeding. Eyes: PERRLA, no acute vision change, nystagmus, swelling, discharge, pain or photosensitivity. Conjunctiva pink, no pallor or injection Neck: Supple, nontender, no lymphadenopathy, no midline pain, FROM, no meningismus. Respiratory: There are no retractions, lungs are clear to auscultation. Reproducible pain to palpation of the left lateral rib cage which patient reports is secondary to a fall many weeks ago Cardiac: Regular rate and rhythm, no murmurs or gallops. Gastrointestinal: Abdomen is soft, nontender, bowel sounds normal, no masses/ hernia, no rigidity, guarding or focal peritoneal findings. Neurological: Alert and oriented x 3, CN 2-12 grossly intact, normal gait no ataxia, DTR's intact, normal sensation and strength Skin: Warm, dry, no rashes, no nodules on palpation. Musculoskeletal: Extremities are symmetrical, pain to palpation along the right distal clavicle, no obvious deformity to the shoulder. No proximal humeral head pain. Full range of motion of right elbow wrist, hand and fingers. full range of motion of bilateral lower extremities, no tenderness, deformity, swelling, or erythema. Psychiatric: Patient is oriented X 3, there is no agitation. MEDICAL DECISION MAKING: Patient was seen independently. Secondary supervising physician at time of evaluation was Dr. Angeles. Diagnosis: Facial contusion, ground level fall, right shoulder pain . New, requires workup Summary: See Assessment and Plan for summary of ED visit Independent visualization of images, tracing, or specimens: Yes. Decision to obtain medical records or history from someone other than the patient: Patient's caregiver Review / Summarize previous medical records: None available Discussed patient with another provider: Radiology Patient Progress: Improved. - Diagnostics Imaging Results: Imaging Impressions Cervical Spine CT 05/01/18 18:50 Impression: Nothing acute identified. 2. CT Cervical Spine Without Contrast, 18:57 History: Trauma. Fall. Neck pain. Technique: Multi-slice ultrathin single breath-hold helical CT through the neck from the skull base through the thoracic inlet without contrast. Soft tissue and bone window evaluation is performed. Sagittal and coronal reconstructions are obtained. Dose reduction techniques were utilized. Findings: Alignment is anatomic, except for slight degenerative spondylolisthesis at C3-C4 where there is a mild disk bulge. No fracture or dislocation is identified. There is fusion of the C4-C5 disk space and right facets , severe degenerative narrowing of the C5-C6 disk space with chronically eroded endplates and moderate narrowing of the C6-C7 disk space, also with chronically eroded endplates. Facets are normally aligned, without fracture. The skull base - C1 and C1-C2 relationships are normal. Is osteoarthritis of the joint between the anterior ring of C1 and the odontoid. The odontoid process is intact. There is no evidence of a prevertebral or epidural hematoma. The cervical thoracic junction is normally aligned. Impression: Nothing acute identified. Multilevel degenerative changes are described above. If there is concern for instability, then consider lateral flexion-extension views, cervical fluoroscopy and/or cervical MRI. 3. CT of the Facial Bones, 18:57 Indication: Trauma. Fall on to face. Pain and swelling. Technique: 0.625 mm thick collimated slices were obtained through the face from just below the mandible to above the frontal sinuses. The data was reconstructed in the sagittal and coronal planes. Dose reduction techniques were utilized. Findings: No nasal bone fracture is identified. The nasal septum is intact and midline. The maxillary sinus and orbital wells are intact. The zygomatic arches are intact. The lamina papyracea and inferior orbital wells are intact. Paranasal sinuses are well aerated. The pterygoid plates are intact. Incidentally noted is mild degenerative change of bilateral mandibular condylar heads. Impression: Negative. Concordant final results discussed with Freedom Felix at 7:57 PM. General information for patients regarding this examination can be found at [email or web address]. If you have questions or comments about this report, please contact me at [phone](hospital) or [phone] (cell). Face CT 05/01/18 18:50 Impression: Nothing acute identified. 2. CT Cervical Spine Without Contrast, 18:57 History: Trauma. Fall. Neck pain. Technique: Multi-slice ultrathin single breath-hold helical CT through the neck from the skull base through the thoracic inlet without contrast. Soft tissue and bone window evaluation is performed. Sagittal and coronal reconstructions are obtained. Dose reduction techniques were utilized. Findings: Alignment is anatomic, except for slight degenerative spondylolisthesis at C3-C4 where there is a mild disk bulge. No fracture or dislocation is identified. There is fusion of the C4-C5 disk space and right facets , severe degenerative narrowing of the C5-C6 disk space with chronically eroded endplates and moderate narrowing of the C6-C7 disk space, also with chronically eroded endplates. Facets are normally aligned, without fracture. The skull base - C1 and C1-C2 relationships are normal. Is osteoarthritis of the joint between the anterior ring of C1 and the odontoid. The odontoid process is intact. There is no evidence of a prevertebral or epidural hematoma. The cervical thoracic junction is normally aligned. Impression: Nothing acute identified. Multilevel degenerative changes are described above. If there is concern for instability, then consider lateral flexion-extension views, cervical fluoroscopy and/or cervical MRI. 3. CT of the Facial Bones, 18:57 Indication: Trauma. Fall on to face. Pain and swelling. Technique: 0.625 mm thick collimated slices were obtained through the face from just below the mandible to above the frontal sinuses. The data was reconstructed in the sagittal and coronal planes. Dose reduction techniques were utilized. Findings: No nasal bone fracture is identified. The nasal septum is intact and midline. The maxillary sinus and orbital wells are intact. The zygomatic arches are intact. The lamina papyracea and inferior orbital wells are intact. Paranasal sinuses are well aerated. The pterygoid plates are intact. Incidentally noted is mild degenerative change of bilateral mandibular condylar heads. Impression: Negative. Concordant final results discussed with Freedom Felix at 7:57 PM. General information for patients regarding this examination can be found at [email or web address]. If you have questions or comments about this report, please contact me at (hospital) or [phone] (cell). Head CT 05/01/18 18:50 Impression: Nothing acute identified. 2. CT Cervical Spine Without Contrast, 18:57 History: Trauma. Fall. Neck pain. Technique: Multi-slice ultrathin single breath-hold helical CT through the neck from the skull base through the thoracic inlet without contrast. Soft tissue and bone window evaluation is performed. Sagittal and coronal reconstructions are obtained. Dose reduction techniques were utilized. Findings: Alignment is anatomic, except for slight degenerative spondylolisthesis at C3-C4 where there is a mild disk bulge. No fracture or dislocation is identified. There is fusion of the C4-C5 disk space and right facets , severe degenerative narrowing of the C5-C6 disk space with chronically eroded endplates and moderate narrowing of the C6-C7 disk space, also with chronically eroded endplates. Facets are normally aligned, without fracture. The skull base - C1 and C1-C2 relationships are normal. Is osteoarthritis of the joint between the anterior ring of C1 and the odontoid. The odontoid process is intact. There is no evidence of a prevertebral or epidural hematoma. The cervical thoracic junction is normally aligned. Impression: Nothing acute identified. Multilevel degenerative changes are described above. If there is concern for instability, then consider lateral flexion-extension views, cervical fluoroscopy and/or cervical MRI. 3. CT of the Facial Bones, 18:57 Indication: Trauma. Fall on to face. Pain and swelling. Technique: 0.625 mm thick collimated slices were obtained through the face from just below the mandible to above the frontal sinuses. The data was reconstructed in the sagittal and coronal planes. Dose reduction techniques were utilized. Findings: No nasal bone fracture is identified. The nasal septum is intact and midline. The maxillary sinus and orbital wells are intact. The zygomatic arches are intact. The lamina papyracea and inferior orbital wells are intact. Paranasal sinuses are well aerated. The pterygoid plates are intact. Incidentally noted is mild degenerative change of bilateral mandibular condylar heads. Impression: Negative. Concordant final results discussed with Freedom Felix at 7:57 PM. General information for patients regarding this examination can be found at [email or web address]. If you have questions or comments about this report, please contact me at (hospital) or [phone] (cell). Shoulder X-Ray 05/01/18 18:50 Impression: Nothing acute identified. Ribs w/Chest X-Ray 05/01/18 18:51 Impression: Nothing acute identified. - History Smoking Status: Never smoked - Objective Vital Signs: Initial Vital Signs Temperature (C) 36.7 C 05/01/18 18:10 Heart Rate 78 05/01/18 18:10 Respiratory Rate 18 05/01/18 18:10 Blood Pressure 142/83 H 05/01/18 18:10 O2 Sat (%) 97 05/01/18 18:10 O2 Delivery Mode Room Air Allergies/Adverse Reactions: codeine Allergy (Mild, Verified 05/01/18 18:13) Other-Enter Comments clindamycin Allergy (Verified 05/01/18 18:13) cyclobenzaprine Allergy (Verified 05/01/18 18:13) hydromorphone HCl [From Dilaudid] Allergy (Verified 05/01/18 18:13) iodine [Iodine] Allergy (Verified 05/01/18 18:13) meperidine HCl [From Demerol] Allergy (Verified 05/01/18 18:13) propoxyphene HCl [From Darvon] Allergy (Verified 05/01/18 18:13) ropinirole Allergy (Verified 05/01/18 18:13) Home Medications: Medication Instructions Recorded Albuterol [Proventil Inhaler HFA 1 - 2 puffs IH DAILY PRN 04/25/09 (*)] Cholecalciferol (Vitamin D3) 2,000 unit PO DAILY@1700 09/18/13 [Vitamin D3] Herbals/Supplements -Info Only 1 ea PO AD 09/18/13 Multivitamins [Multivitamin (*)] 1 each PO DAILY 09/18/13 diphenhydrAMINE [Benadryl 25 MG 25 mg PO HS PRN 09/18/13 (*)] Ascorbic Acid [C-1000] 1,000 mg PO BID 09/19/13 Polyethylene Glycol 3350 [Miralax 1 tsp PO BID 09/19/13 17 gm (*)] Carboxymethyl/Glycerin/Poly80 1 drop OP QID 03/23/14 [Refresh Optive Advanced Drops] Carbidopa/Levodopa 1 tab PO DAILY@22 01/07/17 [Carbidopa-Levodopa 25-100 Tab] Carbidopa/Levodopa 2 tab PO DAILY@06,14 01/07/17 [Carbidopa-Levodopa 25-100 Tab] celeCOXIB [Celebrex (*)] 200 mg PO DAILY 02/15/17 Aspirin EC [Aspirin EC 325 mg (*)] 81 mg PO BID #0 tab 02/16/17 Aspirin [Aspirin 325 mg (*)] 81 mg PO BID tab 02/16/17 HYDROcodone/APAP [Buckeye 1 - 2 tab PO Q6HRS PRN tab 02/16/17 10325 (*)] Sennosides/Docusate Sodium 1 - 2 tab PO BID tab 02/16/17 [Senokot-S] celeCOXIB [Celebrex (*)] 200 mg PO DAILY cap 02/16/17 Departure - Departure Disposition: Home, Routine, Self-Care Clinical Impression: Fall from ground level Shoulder pain, right Qualifiers: Chronicity: acute Qualified Code(s): M25.511 - Pain in right shoulder Condition: Fair Instructions: Fall Prevention for Older Adults (ED), Shoulder Pain (ED), Facial Contusion (ED) Additional Instructions: DISCHARGE INSTRUCTIONS FROM YOUR DOCTOR Thank you for visiting our emergency department today. Please keep in mind that discharge from the emergency department does not mean that there is nothing wrong - it simply means that we have not identified an emergency condition that requires further evaluation or treatment in the hospital. You should always plan to follow up with primary care for re-evaluation of your condition in the next 2-3 days. If you have been referred to a specialist, please call as soon as possible (today or tomorrow) to schedule your follow up appointment at the appropriate time. CT SCAN OF HER HEAD, FACE AND NECK WAS READ BY THE RADIOLOGIST NEGATIVE FOR ACUTE FRACTURE AND BLEEDING. WE REVIEWED X-RAYS OF THE SHOULDER, CHEST AND RIBS WITH NO OBVIOUS DISLOCATION, FRACTURE OR LIGAMENTOUS INJURY HOWEVER X-RAY IS NOT DIAGNOSTIC FOR ROTATOR CUFF FOR LIGAMENTOUS INJURIES. PLEASE FOLLOW-UP WITH YOUR ORTHOPEDIC PROVIDER IF SHOULDER PAIN PERSISTS. A SLING WAS PROVIDED FOR COMFORT. YOU CAN USE HER HOME PAIN MEDICATION BUT PLEASE BE AWARE NARCOTICS CAN INCREASE HER RISK OF FALLING AND CAUSE CONSTIPATION. PLEASE DO NOT TAKE THESE WHEN YOUR ALONE AT HOME. DO NOT DRIVE OR DRINK WHILE TAKING NARCOTICS. RETURN TO THE EMERGENCY DEPARTMENT IMMEDIATELY FOR SEVERE HEADACHES , ALTERED MENTAL STATUS, SEIZURES, VOMITING, NECK PAIN, WORSENING ARM PAIN, LOSS OF SENSATION TO HAND OR FINGERS, OR ANY OTHER CONCERNS. PLEASE SEE HER PRIMARY CARE DOCTOR TOMORROW TO RECHECK. People present with illnesses and injuries in different ways, and it is always possible that we have missed something. You may always return for re-evaluation if symptoms worsen or if they are not improving or if you develop new/different symptoms. Again, thank you for choosing our emergency department. We hope that you feel better. Referrals: Shey Alcantara MD [Primary Care Provider] - 1-2 days without fail Audrye Garcia MD [Medical Doctor] - 3-4 days, if not improved
[2018-05-01 20:48] VITALS: BP 152/89
== END 2018-05-01 20:45 | disposition home or self-care (01) ==
DX: S00.83XA Contusion of other part of head, initial encounter (principal); M25.511 Pain in right shoulder; M54.2 Cervicalgia; M54.5 Low back pain; G89.29 Other chronic pain; G20 Parkinson's disease; M79.7 Fibromyalgia; W01.0XXA Fall on same level from slipping, tripping and stumbling without subsequent striking against object, initial encounter; Y92.009 Unspecified place in unspecified non-institutional (private) residence as the place of occurrence of the external cause; Y93.9 Activity, unspecified; Y99.9 Unspecified external cause status

== ENCOUNTER → 2018-06-09 | Outpatient (CLI) | payer OTHER | LOC: FIMAGING 10:22 | PROVIDERS: ATTEND Family Medicine | DX: R13.11 Dysphagia, oral phase (principal); G20 Parkinson's disease | CPT/HCPCS: 92611-GN ==